=== PATIENT | female | born 1995 | race Caucasian/White ===

== ENCOUNTER 2020-03-25 20:56 | Observation (INO) ==
[2020-03-25 21:08] VITALS: BMI 38.0
[2020-03-25] MEDS ORDERED: ZOFRAN INJ 4 MG VIAL IM ONE (21:22)
[2020-03-25] MEDS ORDERED: MORPHINE SULFATE INJ 2 MG INJ IM ONE (21:22)
--- NOTE | 2020-03-25 21:27 | ED.ABDFE ---
HPI Time Seen Time Seen by Provider: 03/25/20 21:16 PCP Primary Care Physician: parul vazquez HPI Comment HPI Comment: "Sharp, stabbing" abd pain pretty much all over but most in the lower quadrants x several hours; N/V x 2; normal bm today; no fever, chills, dysuria, hematuria, frequency or prior hx of same; no alcohol or drugs; no nsaids. Complaint Chief Complaint:: pt stated she is hurting really bad right behind her belly button that is radiating all over the abdomen. Self Treatment fo Chief Complaint: gas-x Source History Provided: Patient Mode of arrival Mode of Arrival: Ambulatory Timing Onset of Chief Complaint: 03/25/20 PMH PMH Past Medical History: Yes Past Medical History: Anxiety Past Medical History Comment: rt shoulder pain, insomnia Past Surgical History: Yes Past Surgical History Comment: right index middle finger Family History History of Family Medical Conditions: Yes Family Medical History: Diabetes Mellitus Social History Type of Tobacco Use: None Alcohol Use: None Do you use any recreational Drugs:: No Lives With: Family Lives Where: Home Infectious screening In the last 2 months have you had wt loss of >10#?: NO Have you had fever, night sweats or hemotysis?: No Have you traveled outside the country in the last 6 months?: No Isolation: Standard ROS Review of Systems Constitutional: No Symptoms Reported Eyes: No Symptoms Reported ENTM: No Symptoms Reported Respiratoy: No Symptoms Reported Cardiovascular: No Symptoms Reported Genitourinary: No Symptoms Reported Neurological: No Symptoms Reported Integumentary: No Symptoms Reported Hematologic/Lymphatic: No Symptoms Reported Endocrine: No Symptoms Reported PE Vital Signs Vitals: Temperature 98.1 F Pulse Rate 105 Respiratory Rate 20 Blood Pressure 130/67 O2 Sat by Pulse Oximetry 96 General Limitations: Other (obviously uncomfortable, rolling around on bed holding stomach) General Appearance: Alert Head Head Exam: Normal Inspection Eyes Eye exam: Normal Appearance ENT ENT Exam: Normal Exam Neck Neck Exam: Normal Inspection Chest Chest Inspection: Normal Inspection Respiratory Respiratory Exam: Normal Lung Sounds Bilat Cardiovascular Cardiovascular Exam: Regular Rate and Normal Rhythm Abdominal Exam Abdominal Exam: Normal Inspection, Normal Bowel Sounds, Soft and Tenderness Abdominal Tenderness: Diffuse (mostly lower quandrants rt more than lt) Back Back Exam: Normal Inspection Extremeties Extremities Exam: Normal Inspection Neurologic Neurological Exam: Alert and Oriented X3 Psychiatric Psychiatric Exam: Normal Affect and Normal Mood Skin Skin Exam: Warm, Dry and Intact MDM Differential Diagnosis Differential Diagnosis- Considerations may include:: Appendicitis, Bowel Obstruction, Diverticular disease, Ectopic and Ischemic Bowel COURSE Reevaluation 1st: Improved (still 12/14) 2nd: Improved (sitting up in bed playing with phone; feels "so-so"; mom at bedside) Consultation Called: 02:29 Call Returned: 02:30 (Dr Jj accepts pt) [facility]OR Labs Reviewed Laboratory Results Reviewed?: Yes Result Diagrams: 03/25/20 21:34 03/25/20 21:34 Laboratory: WBC 15.9 X10^3/uL (3.6-10.0) H 03/25/20 21:34 RBC 4.84 X10^6/uL (3.5-5.4) 03/25/20 21:34 Hgb 14.4 g/dL (12.0-16.0) 03/25/20 21:34 Hct 42.4 % (36.0-47.0) 03/25/20 21:34 MCV 87.5 fL (80.0-100.0) 03/25/20 21:34 MCH 29.7 pg (27.0-34.0) 03/25/20 21:34 MCHC 34.0 g/dL (33.0-35.0) 03/25/20 21:34 RDW 12.9 % (11.6-16.5) 03/25/20 21:34 Plt Count 234 X10^3/uL (150.0-450.0) 03/25/20 21:34 MPV 9.6 fL (7.4-11.0) 03/25/20 21:34 Neut % (Auto) 84.4 % (42.0-75.0) H 03/25/20 21:34 Lymph % (Auto) 9.3 % (21.0-51.0) L 03/25/20 21:34 [place] % (Auto) 5.6 % (0.0-13.0) 03/25/20 21:34 Eos % (Auto) 0.3 % (0.9-2.9) L 03/25/20 21:34 Baso % (Auto) 0.4 % (0.2-1.0) 03/25/20 21:34 Neut # (Auto) 13.5 x10^3/uL (2.2-4.8) H 03/25/20 21:34 Lymph # (Auto) 1.5 X10^3/uL (1.3-2.9) 03/25/20 21:34 [place] # (Auto) 0.9 x10^3/uL (0.3-0.8) H 03/25/20 21:34 Eos # (Auto) 0.1 x10^3/uL (0.0-0.2) 03/25/20 21:34 Baso # (Auto) 0.1 X10^3/uL (0.0-0.1) 03/25/20 21:34 Absolute Nucleated RBC 0.0 /100WBC 03/25/20 21:34 Sodium 140 mmol/L (136-145) 03/25/20 21:34 Corrected Sodium TNP 03/25/20 21:34 Potassium 3.8 mmol/L (3.5-5.1) 03/25/20 21:34 Chloride 103 mmol/L (98-107) 03/25/20 21:34 Carbon Dioxide 29.8 mmol/L (21-32) 03/25/20 21:34 BUN 12 mg/dL (7-18) 03/25/20 21:34 Creatinine 0.94 mg/dL (0.55-1.02) 03/25/20 21:34 Est GFR (MDRD) Af Amer > 60 (>60) 03/25/20 21:34 Est GFR (MDRD) Non-Af > 60 (>60) 03/25/20 21:34 Glucose 105 mg/dL (65-99) H 03/25/20 21:34 Calcium 8.9 mg/dL (8.5-10.1) 03/25/20 21:34 Corrected Calcium TNP 03/25/20 21:34 Total Bilirubin 0.40 mg/dL (0.2-1.0) 03/25/20 21:34 AST 10 Units/L (15-37) L 03/25/20 21:34 ALT 15 Units/L (12-78) 03/25/20 21:34 Alkaline Phosphatase 89 Units/L (46-116) 03/25/20 21:34 Total Protein 7.6 g/dL (6.4-8.2) 03/25/20 21:34 Albumin 4.0 g/dL (3.4-5.0) 03/25/20 21:34 Globulin 3.6 g/dL (2.5-4.5) 03/25/20 21:34 Albumin/Globulin Ratio 1.1 Ratio (1.1-2.1) 03/25/20 21:34 HCG, Qual Negative <10 mIU/mL 03/25/20 21:34 Specimen Type Clean catch urine 03/25/20 22:45 Urine Color Yellow (YELLOW) 03/25/20 22:45 Urine Appearance Clear (CLEAR) 03/25/20 22:45 Urine pH 7.0 (5.0 - 8.0) 03/25/20 22:45 Ur Specific [place] 1.015 (1.000-1.030) 03/25/20 22:45 Urine Protein Negative (NEGATIVE) 03/25/20 22:45 Urine Glucose (UA) Negative (NEGATIVE) 03/25/20 22:45 Urine Ketones 1+ (NEGATIVE) 03/25/20 22:45 Urine Occult Blood Negative (NEGATIVE) 03/25/20 22:45 Urine Nitrite Negative (NEGATIVE) 03/25/20 22:45 Urine Bilirubin Negative (NEGATIVE) 03/25/20 22:45 Urine Urobilinogen Normal (NORMAL) 03/25/20 22:45 Ur Leukocyte Esterase Negative (NEGATIVE) 03/25/20 22:45 Other Results Comments: [id number] Dr Johnson called reporting acute appendicitis XRAY XRAY Interpreted by: Radiologist X-ray Results: Ct abd/pelvis: Mildly enlarged appendix with subtle periappendiceal stranding consistent with acute appendicitis in the appropriate clinical setting. Opioid Opioid Risk Tool Age (Ramirez box if 16-45): Yes History of Preadolescent Sexual Abuse: No Total: 1 Total Score Risk Category: Low Risk Copyright: [place] HENRIQUEZ predicting aberrant behaviors Diagnosis Discharge Problem: Acute appendicitis Qualifiers: Acute appendicitis type: unspecified acute appendicitis type Qualified Code(s): K35.80 - Unspecified acute appendicitis Instructions Forms: Precautions for COVID19 Patient Portal Social Distancing
[2020-03-25] MEDS ORDERED: MORPHINE SULFATE INJ 2 MG INJ ONE (21:39)
[2020-03-25] MEDS ORDERED: ZOFRAN INJ 4 MG VIAL ONE (21:40)
[2020-03-25 21:44] LABS: BASOPHILS # (AUTO) 0.1 X10^3/uL (0.0-0.1); BASOPHILS % (AUTO) 0.4 % (0.2-1.0); EOSINOPHILS # (AUTO) 0.1 x10^3/uL (0.0-0.2); EOSINOPHILS % (AUTO) 0.3 % (0.9-2.9); HEMATOCRIT 42.4 % (36.0-47.0); HEMOGLOBIN 14.4 g/dL (12.0-16.0); LYMPHOCYTES # (AUTO) 1.5 X10^3/uL (1.3-2.9); LYMPHOCYTES % (AUTO) 9.3 % (21.0-51.0); MEAN CORPUSCULAR HEMOGLOBIN 29.7 pg (27.0-34.0); MEAN CORPUSCULAR VOLUME 87.5 fL (80.0-100.0); MEAN PLATELET VOLUME 9.6 fL (7.4-11.0); MONOCYTES # (AUTO) 0.9 x10^3/uL (0.3-0.8); MONOCYTES % (AUTO) 5.6 % (0.0-13.0); NEUTROPHILS # (AUTO) 13.5 x10^3/uL (2.2-4.8); NEUTROPHILS % (AUTO) 84.4 % (42.0-75.0); PLATELET COUNT 234 X10^3/uL (150.0-450.0); RED BLOOD COUNT 4.84 X10^6/uL (3.5-5.4); RED CELL DISTRIBUTION WIDTH 12.9 % (11.6-16.5); WHITE BLOOD COUNT 15.9 X10^3/uL (3.6-10.0)
[2020-03-25 21:54] LABS: ALANINE AMINOTRANSFERASE 15 Units/L (12-78); ALKALINE PHOSPHATASE 89 Units/L (46-116); ASPARTATE AMINO TRANSFERASE 10 Units/L (15-37); BLOOD UREA NITROGEN 12 mg/dL (7-18); CALCIUM 8.9 mg/dL (8.5-10.1); CARBON DIOXIDE 29.8 mmol/L (21-32); CHLORIDE 103 mmol/L (98-107); CREATININE 0.94 mg/dL (0.55-1.02); SODIUM 140 mmol/L (136-145); TOTAL PROTEIN 7.6 g/dL (6.4-8.2); eGFR NON BLACK RACES > 60 (>60)
[2020-03-25 22:05] LABS: SERUM PREGNANCY TEST, QUAL NEGATIVE <10 mIU/mL
[2020-03-25 22:57] LABS: BILIRUBIN,URINE NEGATIVE (NEGATIVE); BLOOD/HEMOGLOBIN,URINE NEGATIVE (NEGATIVE); GLUCOSE, URINE NEGATIVE (NEGATIVE); KETONES,URINE 1+ (NEGATIVE); LEUKOCYTE ESTERASE ,URINE NEGATIVE (NEGATIVE); NITRITES,URINE NEGATIVE (NEGATIVE); PROTEIN,URINE NEGATIVE (NEGATIVE); UROBILINOGEN,URINE NORMAL (NORMAL)
[2020-03-25 22:59] LABS: APPEARANCE,URINE CLEAR (CLEAR); COLOR,URINE YELLOW (YELLOW)
[2020-03-26] MEDS ORDERED: MORPHINE SULFATE INJ 2 MG INJ IV ONE (01:53)
[2020-03-26] MEDS ORDERED: MORPHINE SULFATE INJ 2 MG INJ ONE (01:57)
--- NOTE | 2020-03-26 02:24 | CT ---
HISTORYpt stated she is hurting really bad right behind her belly button that is radiating all over the abdomen.STUDYABDOMEN/PELVIS WITH CONCOMPARISONNone popTECHNIQUEMultiple axial images of the abdomen and pelvis were obtained from the lung bases to the pubic symphysis after the administration of IV contrast. Dose reduction techniques including Automated Exposure Control (AEC) and adjustment of mA and kV were utilized.FINDINGSThe visualized portions of the lung bases are unremarkable . The liver, spleen, pancreas, kidneys, and adrenal glands are unremarkable in their CT appearance. The gallbladder is unremarkable in its CT appearance . No significant mesenteric lymphadenopathy or stranding can be observed. No free fluid or free air is seen within the abdomen. Is the appendix is mildly enlarged measuring 9 mm in diameter. Subtle periappendiceal stranding is present suggestive of acute appendicitis in the appropriate clinical setting. No bowel wall thickening or bowel dilatation is present. The colon is unremarkable. Specifically, there is no diverticulosis noted within the sigmoid colon. The urinary bladder is grossly unremarkable. The uterus is present. the bony structures are grossly intact.IMPRESSIONMildly enlarged appendix with subtle periappendiceal stranding consistent with acute appendicitis in the appropriate clinical setting.COMMUNICATIONS: These findings were discussed with Dr. Win of the emergency Department at 2:18 a.m. 03/26/2020Electronically signed by: Sam Johnson (Mar 26, 2020 02:21:27)
[2020-03-26] MEDS ORDERED: ZOFRAN INJ 4 MG VIAL IVP PRN ×3 (02:35→12:47)
[2020-03-26] MEDS ORDERED: NS 1000 ML 1,000 ML ONE (02:46)
[2020-03-26] MEDS ORDERED: ZOSYN VIAL 2.25 GRAMS IV ONE (02:52)
[2020-03-26] MEDS ORDERED: NS 50 ML IV + SPIKE MINIBAG* 50 ML IV ONE (02:52)
[2020-03-26] MEDS: ZOSYN VIAL 2.25 GRAMS 2.25 G in NS 100 ML IV + SPIKE MINIBAG* 100 ML IV SCH ×3 (02:59→18:10)
[2020-03-26] MEDS: NS 1000 ML 1,000 ML IV SCH ×3 (02:59→14:35)
[2020-03-26] MEDS: MORPHINE SULFATE INJ 2 MG INJ IVP PRN ×2 (06:07→17:54)
[2020-03-26] MEDS ORDERED: PHENERGAN INJ 25 MG IM PRN ×2 (10:59→12:47)
[2020-03-26] MEDS ORDERED: BENADRYL INJ 50 MG VIAL IVP PRN ×2 (10:59→12:47)
[2020-03-26] MEDS ORDERED: REGLAN INJ 10 MG VIAL IVP PRN ×2 (10:59→12:47)
[2020-03-26] MEDS ORDERED: FENTANYL INJ 250 mcg ONE (11:37)
[2020-03-26] MEDS ORDERED: BACTROBAN TOPICAL OINT ONE (11:41)
[2020-03-26] MEDS ORDERED: QUELICIN (OR ANECTINE) ONE (11:45)
[2020-03-26] MEDS ORDERED: SUPRANE ONE (11:45)
[2020-03-26] MEDS ORDERED: ROBINUL ONE (11:45)
[2020-03-26] MEDS ORDERED: NEOSTIGMINE INJ ONE (11:45)
[2020-03-26] MEDS ORDERED: TORADOL 30 MG VIAL ONE (11:45)
[2020-03-26] MEDS ORDERED: FENTANYL INJ 100 mcg ONE (11:45)
[2020-03-26] MEDS ORDERED: VERSED ONE (11:45)
[2020-03-26] MEDS ORDERED: DIPRIVAN VIAL ONE (11:45)
[2020-03-26] MEDS ORDERED: NORCURON INJ 10 MG VIAL ONE (11:45)
[2020-03-26] MEDS ORDERED: ZOFRAN INJ 4 MG VIAL ONE (11:45)
[2020-03-26] MEDS ORDERED: OFIRMEV IV 1000 MG VIAL 1,000 MG/100 ML VIAL IV ONE (12:23)
[2020-03-26] MEDS ORDERED: DILAUDID INJ ONE (12:45)
[2020-03-26] MEDS: DILAUDID INJ IVP PRN ×4 (12:45→13:10)
[2020-03-26] MEDS ORDERED: DILAUDID INJ IVP PRN (12:47)
[2020-03-26] MEDS: D5 1/2 NS 1000 ML 1,000 ML IV SCH ×2 (17:14→21:55)
[2020-03-27] MEDS: MORPHINE SULFATE INJ 2 MG INJ IVP PRN ×2 (02:16→06:33)
[2020-03-27] MEDS: ZOSYN VIAL 2.25 GRAMS 2.25 G in NS 100 ML IV + SPIKE MINIBAG* 100 ML IV SCH (02:16)
[2020-03-27] MEDS: D5 1/2 NS 1000 ML 1,000 ML IV SCH (06:32)
[2020-03-27 08:23] VITALS: BP 114/59
== END 2020-03-27 10:30 | disposition home or self-care (01) ==
LOC: MED/SURG 20:57 → ER 20:57 → MED/SURG 03-26 04:12
PROVIDERS: ADMIT Surgery; ATTEND Surgery
PROC: APPYLAP (ICD-10-PCS; 2020-03-26 12:35)
DX: K35.890 Other acute appendicitis without perforation or gangrene; E66.9 Obesity, unspecified; Z20.828 Contact with and (suspected) exposure to other viral communicable diseases